=== PATIENT | male | born 1980 | race Caucasian/White ===

== ENCOUNTER → 2016-05-14 | Outpatient (CLI) | payer BC ==
--- NOTE | 2016-05-14 15:58 | DI ---
PA /LATERAL CHEST X-RAY, 05/14/2016 3:27 PM : Clinical History: Cough. Previous Exam: 08/19/2012. There is no acute soft tissue or bony abnormality. Heart size is normal. Lungs are clear. Mediastinal structures are normal. There are no pulmonary nodules. Reading: Normal chest x-ray. There has been no interval change.
== END ==
LOC: MOB RAD 15:29
PROVIDERS: ATTEND Family Medicine
DX: R05 Cough (principal); F17.220 Nicotine dependence, chewing tobacco, uncomplicated
CPT/HCPCS: 71020

== ENCOUNTER → 2016-07-21 | Outpatient (CLI) | payer BC ==
--- NOTE | 2016-07-22 10:19 | DI ---
MRI PELVIS W/O CN,07/21/2016 12:51 PM: Clinical History: Right hip pain and low back pain. Previous Exam: None at this facility. Findings: Multiplanar MR images are obtained through the pelvis without contrast, and demonstrate anatomic alig nment without fractures. There is some mild loss of joint space and some mild sclerosis involving the hip joints bilaterally. There is some thinning of the articular cartilage without full-thickness defects. The vega are not well evaluated on this exam, but there appears to be some degenerative fraying. The sacroiliac joints are unremarkable. Degenerative changes of the lower lumbar spine are seen. The urinary bladder is unremarkable. There are small bilateral hydroceles. There are degenerative changes of the posterior articulating facets. Impression: Degenerative osteoarthritis of both hips likely with some underlying labral pathology which cannot be well evaluated on this exam.
== END ==
LOC: MRI 12:47
PROVIDERS: ATTEND Chiropractor
DX: M25.551 Pain in right hip (principal); M16.0 Bilateral primary osteoarthritis of hip
CPT/HCPCS: 72195

== ENCOUNTER → 2016-07-22 | Outpatient (CLI) | payer BC ==
--- NOTE | 2016-07-22 16:25 | DI ---
MRI LUMBAR SPINE W/O CN,07/22/2016 12:56 PM: Clinical History: Low back pain Previous Exam: February 06, 2010 Findings: Multiplanar MR images are obtained through the lumbar spine without contrast. There is new grade 1 retrolisthesis of L5 on S1. Vertebral body height is preserved. There is some mild facet hypertrophy of the lower lumbar spine. The spinal cord descends normally with normal course, caliber and a normal conus at the L1 level. Paraspinal musculature is unremarkable. The major vascular flow voids are unremarkable. Visualized po rtions the kidneys are unremarkable. Individual intervertebral disc spaces: L1/2: No significant stenosis. L2/3: No significant stenosis. L3/4: No significant stenosis. L4/5: There is disc desiccation and a broad-based disc bulge with some facet and ligamentum flavum hy pertrophy contributing to mild bilateral neural foraminal narrowing. L5/S1: There is grade 1 retrolisthesis of L5 on S1. There has been new disc desiccation, annular fiss uring and loss of intervertebral disc height combining with facet and ligamentum flavum hypertrophy t o cause moderate bilateral neuroforaminal narrowing which has worsened since the prior exam. Impression: L4/5: There is disc desiccation and a broad-based disc bulge with some facet and ligamentum flavum hy pertrophy contributing to mild bilateral neural foraminal narrowing. L5/S1: There is grade 1 retrolisthesis of L5 on S1. There has been new disc desiccation, annular fiss uring and loss of intervertebral disc height combining with facet and ligamentum flavum hypertrophy t o cause moderate bilateral neuroforaminal narrowing which has worsened since the prior exam.
== END ==
LOC: MRI 12:53
PROVIDERS: ATTEND Chiropractor
DX: M54.5 Low back pain (principal); M51.16 Intervertebral disc disorders with radiculopathy, lumbar region; M51.17 Intervertebral disc disorders with radiculopathy, lumbosacral region
CPT/HCPCS: 72148

== ENCOUNTER 2016-10-29 12:00 | Emergency (ER) | payer BC ==
[2016-10-29] MEDS ORDERED: NORMAL SALINE 10 ML SYRINGE FLUSH IVP PRN (12:16)
[2016-10-29 12:21] LABS: BASOPHILS # (AUTO) 0.06 10*3/UL; BASOPHILS % (AUTO) 0.6 % (0-1); EOSINOPHILS % (AUTO) 1.1 % (0-8); HEMATOCRIT 44.1 % (42.0-52.0); LYMPHOCYTES # (AUTO) 1.95 10*3/uL; MEAN CORPUSCULAR HEMOGLOBIN 32.3 PG (27-31); MEAN CORPUSCULAR HGB CONC 36.3 g/dL (33-37); MEAN CORPUSCULAR VOLUME 88.9 FL (80-90); MEAN PLATELET VOLUME 9.9 FL (7.4-12.2); MONOCYTES # (AUTO) 0.69 10*3/UL (0.3-0.8); MONOCYTES % (AUTO) 7.4 % (5-15); NEUTROPHILS # (AUTO) 6.52 10*3/UL; NEUTROPHILS % (AUTO) 69.8 % (50-80); RED BLOOD COUNT 4.96 10^6/uL (4.70-6.10)
[2016-10-29 12:25] LABS: PLATELET MORPHOLOGY COMMENT NORMAL MORPHOLOGY (NORM); RBC MORPHOLOGY COMMENT NORMAL MORPHOLOGY (NORM); WBC MORPHOLOGY COMMENT NORMAL MORPHOLOGY (NORM)
[2016-10-29 12:27] LABS: BLOOD UREA NITROGEN 16 mg/dL (7-22); BUN/CREATININE RATIO 13.33 (6-20); CALCIUM 9.4 mg/dL (8.7-10.7); EST GLOMERULAR FILTRATION > 60 (>60 ml/min/1.73m(2)); SERUM ALBUMIN 4.9 g/dL (3.5-4.8)
[2016-10-29 12:42] LABS: CREATINE KINASE MB 1.32 NG/ML (0.00-5.00); TROPONIN I < 0.012 ng/mL (< 0.040)
[2016-10-29 12:46] VITALS: RESP 16; TEMP 98.1
--- NOTE | 2016-10-29 13:26 | DI ---
PA /LATERAL CHEST X-RAY, 10/29/2016 12:17 PM : Clinical History: Chest pain. Previous Exam: 05/14/2016. There is no acute soft tissue or bony abnormality. Heart size is normal. Lungs are clear. Mediastinal structures are normal. There are no pulmonary nodules. Reading: Normal chest x-ray. There has been no significant interval change.
--- NOTE | 2016-10-29 13:46 | EKG ---
[address] [address] Measurements Intervals [place] Rate: 84 P: 54 RI: 131 QRS: 30 QRSD: 96 T: 39 QT: 339 QTc: 380 Interpretive Statements SINUS RHYTHM Compared to ECG 03/20/2014 12:14:53 No significant changes Electronically Signed On 10-29-16 14:42:24 MDT by Ortiz Villalobos [id number]
--- NOTE | 2016-10-29 16:46 | PDOC ---
Chest Pain HPI - General Chief Complaint: Chest Pain Stated Complaint: CHEST PAIN Date Seen by Provider: 10/29/16 Time Seen by Provider: 12:05 Source: Patient Exam Limitations: POSITIVE: No limitations Treatment Prior to Arrival: REPORTS: None Nurse's Notes Reviewed & Considered: Yes - History of Present Illness Initial Comments: The patient is a 36-year-old male who presents to the emergency department with chest pain. He states that for the past couple of weeks he's been having intermittent pain in his upper chest. He states that these episodes seem to occur at random and are not necessarily associated with activity. He states that he has a history of having had similar chest pains 3 or 4 years ago at which time he underwent cardiac workup including stress testing and echocardiogram which was all unremarkable. He been treated for anxiety at that time. He states that he took medications for anxiety for several years and seem to be doing well and subsequently stopped taking them. He does have a history of hypertension and continues to take his blood pressure medication. He denies any history of diabetes, hyperlipidemia or any other associated medical problems. He had called his primary care physician's office to see if he could be evaluated and they recommended he come here to the emergency department. He denies any current chest pain. - Patient Home Medications Home Medications: Home Medications Lisinopril 1 tab PO QD #30 tab 05/14/16 Lorazepam 0.5 tab PO QD PRN #30 tab 05/14/16 Propranolol HCl 20 mg PO BID #60 tab 05/14/16 Aspirin 325 mg PO PRN 10/29/16 - Patient Allergies Allergies/Adverse Reactions: Allergies Allergy/AdvReac Type Severity Reaction Status Date / Time No Known Allergies Allergy Verified 10/29/16 12:07 Past Medical History - elkin FUNES History: Denies History Cardiovascular History: Hypertension Additional Cardiovasular History: CARDIAC WORK UPS FOR CP Respiratory History: Denies History Gastrointestinal History: Denies History Genitourinary History: Denies History Endocrine History: Denies History Musculoskeletal History: Joint Pain, Other (please comment) Prosthesis or Implant: No Additional Musculoskeletal History: Lt knee scope Neurological History: Denies History Blood Disorders: Denies History Psychiatric History: Anxiety Disorders History of Sexually Transmitted Diseases: No Cancer History: Denies History In Past Year Been Physically Harmed or Verbally Threatened: No History of MDRO: No History of Other Communicable Diseases: No Tobacco Use: Never Smoker Alcohol Use: None Substance Use Type: None Previous Surgical History: Yes Type / Date of Surgery: Lt knee Anesthesia Reactions: No Malignant Hyperthermia: No Significant Family History: No pertinent family hx Past Medical History Reviewed: Reviewed - No Changes ROS - Limitations ROS Limitations: No Limitations Constitution: DENIES: Chills, Fever Cardiovascular: REPORTS: Chest Pain. DENIES: Heart Palpitations, Blood Pressure Problem, Edema Respiratory: DENIES: Hurts To Breathe, Shortness Of Breath Neurological: REPORTS: Denies Neuro Symptoms Gastrointestinal: REPORTS: Denies GI Symptoms Musculoskeletal: REPORTS: Denies MS Symptoms Eyes: REPORTS: Denies Symptoms ENT: REPORTS: Denies Symptoms Skin: DENIES: Rash Chest Pain PE - General Appearance General Appearance: REPORTS: Alert, Cooperative, No Acute Distress - HEENT HEENT: POSITIVE: Head Inspection Nml, Eyes Inspection Nml, Ears Inspection Nml, Nose Inspection Nml - Neck Neck: REPORTS: Normal Inspection. DENIES: JVD Present - Respiratory Respiratory: REPORTS: No Respiratory Distress, Breath Sounds Normal, Chest Non- Tender - Cardiovascular Cardiovascular: REPORTS: Regular Rate and Rhythm, Heart Sounds Normal Peripheral Pulses: Dorsalis-pedis (R): 2+, Dorsalis-pedis (L): 2+ - Abdomen Abdomen: Soft: (All Quadrants), Denies Tenderness: (All Quadrants), No Distention: (All Quadrants) - Skin Skin: REPORTS: Intact, No Rash - Extremities Extremity: Normal Inspection: (All Extremities) - Neurological / Psychological Neurological: POSITIVE: Oriented X3, Motor Normal, Sensation Normal Chest Pain Progress - Results Reviewed by me Xrays/CTs/US Reviewed by me: Yes Discussed with Radiologist: Yes Radiology Findings: Chest x-ray is normal per radiologist. Lab Results Reviewed: Yes Lab Results:: Laboratory Results 10/29/16 Range/Units 12:19 WBC 9.34 (4.8-10.8) 10^3/uL RBC 4.96 (4.70-6.10) 10^6/uL Hgb 16.0 (14.0-18.0) g/dL Hct 44.1 (42.0-52.0) % MCV 88.9 (80-90) FL MCH 32.3 H (27-31) PG MCHC 36.3 (33-37) g/dL RDW Std Deviation 41.4 (39-50) fL RDW Coeff of William 12.8 (11.5-14.5) % Plt Count 288 (140-350) 10*3/uL MPV 9.9 (7.4-12.2) FL Immature Gran % (Auto) 0.2 (0-5) % Neut % (Auto) 69.8 (50-80) % Lymph % (Auto) 20.9 (10-50) % [place] % (Auto) 7.4 (5-15) % Eos % (Auto) 1.1 (0-8) % Baso % (Auto) 0.6 (0-1) % Immature Gran # (Auto) 0.02 10*3/UL Neut # (Auto) 6.52 10*3/UL Lymph # (Auto) 1.95 10*3/uL [place] # (Auto) 0.69 (0.3-0.8) 10*3/UL Eos # (Auto) 0.10 10*3/UL Baso # (Auto) 0.06 10*3/UL WBC Morphology Comment Normal morphology (NORM) Plt Morphology Comment Normal morphology (NORM) RBC Morph Comment Normal morphology (NORM) D-Dimer 0.59 (0.00-0.59) mg/L Sodium 133 L (135-145) meq/L Potassium 3.7 L (3.8-5.2) meq/L Chloride 99 (98-112) meq/L Carbon Dioxide 22 L (23-33) meq/L Anion Gap 12 (5-20) BUN 16 (7-22) mg/dL Creatinine 1.2 (0.70-1.50) mg/dL Estimated GFR > 60 (>60 ml/min/1.73m(2)) BUN/Creatinine Ratio 13.33 (6-20) Glucose 97 (78-110) mg/dL Calculated Osmolality 276.0 (267-292) mOsm/kg Calcium 9.4 (8.7-10.7) mg/dL Total Bilirubin 1.8 H (0.3-1.2) mg/dL AST 51 (21-57) IU/L ALT 51 (21-72) IU/L Alkaline Phosphatase 62 (38-126) IU/L CK-MB (CK-2) 1.32 (0.00-5.00) NG/ML Troponin I < 0.012 (< 0.040) ng/mL C-Reactive Protein < 0.5 (0.0-0.9) mg/dL Total Protein 8.4 H (6.1-8.0) g/dL Albumin 4.9 H (3.5-4.8) g/dL Globulin 3.5 (2.50-4.10) g/dL Albumin/Globulin Ratio 1.40 (1.3-2.0) mg/g TSH 1.29 (0.2700-4.2000) uIU/mL EKG Interpreted/Reviewed By Me:: Yes EKG Interpretation:: POSITIVE: Normal Sinus Rhythm, Normal Rate, Normal Intervals, Normal QRS, Normal ST/T - Patient's Progress MDM / ED Course: The patient underwent EKG shortly after arrival which revealed a normal sinus rhythm with no acute changes. His blood work here including d-dimer and troponin are all normal. Given the duration of current symptoms of several weeks with normal labs and normal EKG I think acute coronary syndrome is less likely. The patient does have a history of anxiety as well. At this time he does have a follow-up appointment set to see Dr. Paige on Thursday which is in 2 days. He is considered stable for discharge home with further workup potentially as an outpatient. He did have a fairly recent stress test however may require repeat testing. He is advised return to the emergency room if he develops increased chest pain, any worsening or change in symptoms. - Consult Counseled: POSITIVE: Patient, Family, RE: Lab Results, RE: Radiology Results, RE : DX, RE: Need for F/U Patient Care Time - Estimated PCT Patient Care Time (In Minutes): 35 Vital Signs - Recent Vital Signs Vital Signs: Vital Signs (Last 8 hours) Temp Pulse Resp BP Pulse Ox 10/29/16 12:16 97 10/29/16 12:01 98.1 F 97 16 143/96 98 - VS Reviewed Vital Signs Reviewed: Yes Discharge Clinical Impression: Chest pain Discharge Disposition: Discharged to Home Condition: Stable Patient Instructions Given at Discharge: Chest Pain (ED) Additional Instructions: All the testing done here in the emergency department including your EKG, blood work and chest x-ray were all reassuring. The exact cause of your pain is still not known. It is possible that this could be related to anxiety such was the case previously. I would however recommend following up with your primary care provider on Thursday as scheduled to discuss any further testing and possible repeat stress testing. Return to the emergency room if increased pain , shortness of breath, any worsening or change in symptoms. Follow Up With: SNEHAL PAIGE [Primary Care Provider] -
== END 2016-10-29 13:30 | disposition home or self-care (01) ==
LOC: ER 12:00
DX: R07.9 Chest pain, unspecified (principal); I10 Essential (primary) hypertension
CPT/HCPCS: 71020; 80053; 82553; 84443; 84484; 85025; 85379; 86140; 93005; 93010; 99284